=== PATIENT | female | born 1985 | race Caucasian/White ===

== ENCOUNTER → 2025-02-25 07:59 | Outpatient (REF) | payer BC, SELFPAY | LOC: RAD 07:59 | PROVIDERS: ATTENDING PHYSICIAN Student in an Organized Health Care Education/Training Program; FAMILY PHYSICIAN Internal Medicine | DX: M79.671 Pain in right foot (principal); M25.571 Pain in right ankle and joints of right foot; I73.9 Peripheral vascular disease, unspecified | CPT/HCPCS: 93970 ==

== ENCOUNTER → 2025-09-06 10:01 | Outpatient (REF) | payer BC, SELFPAY | LOC: RAD 10:01 | PROVIDERS: ATTENDING PHYSICIAN Surgery Vascular Surgery; FAMILY PHYSICIAN Internal Medicine | DX: I89.0 Lymphedema, not elsewhere classified (principal) | CPT/HCPCS: 74174; Q9967 ==